=== PATIENT | female | born 1985 | race Caucasian/White ===

== ENCOUNTER 2016-04-27 05:30 | Inpatient (IN) | payer OTHER ==
[2016-04-27] MEDS ORDERED: LR 500 ML IV ONE (05:58)
[2016-04-27] MEDS ORDERED: CITRIC ACID/SODIUM CITRATE 30 ML UDCUP PO ONE (05:58)
[2016-04-27] MEDS ORDERED: LR 1,000 ML IV SCH (06:00)
[2016-04-27 06:33] LABS: % IMMATURE GRANULYOCYTES 0.4 % (0.0-1.1); ABSOLUTE IMMATURE GRANULOCYTES 0.04 10^3/uL (0.00-0.10); ADD DIFF? NO; ADD MORPH? NO; ADD SCAN? NO; ATYPICAL LYMPHOCYTE FLAG 0 (0-99); FRAGMENT RBC FLAG 0 (0-99); HEMATOCRIT 39.7 % (38.0-47.0); HEMOGLOBIN 13.9 g/dL (12.6-16.3); LEFT SHIFT FLG 0 (0-99); LIPEMIA HEMOLYSIS FLAG 90 (0-99); MEAN CELL HEMOGLOBIN 30.4 pg (27.9-34.1); MEAN CELL VOLUME 86.9 fL (81.5-99.8); MEAN PLATELET VOLUME 11.1 fL (8.7-11.7); PLATELET CLUMPS FLAG 0 (0-99); PLATELET COUNT 255 10^3/uL (150-400); RED BLOOD CELL COUNT 4.57 10^6/uL (4.18-5.33); RED CELL DISTRIBUTION WIDTH 13.2 % (11.5-15.2)
[2016-04-27] MEDS ORDERED: TERBUTALINE SULFATE 1 MG/ML VIAL ONE (06:40)
[2016-04-27] MEDS ORDERED: AMMONIA AROMATIC 1 EACH AMP IH ONE (06:40)
[2016-04-27] MEDS ORDERED: MISOPROSTOL 200 MCG TAB ONE (06:40)
[2016-04-27] MEDS ORDERED: OXYTOCIN 10 UNIT/ML VIAL ONE (06:42)
[2016-04-27] MEDS ORDERED: LIDOCAINE 1% 30 ML SDV ONE (06:42)
[2016-04-27] MEDS ORDERED: ceFAZolin 2 GM/DEXTROSE 100 ML IV ONE (07:00)
[2016-04-27] MEDS ORDERED: SIMETHICONE 80 MG TAB CHEW PO PRN (07:32)
[2016-04-27] MEDS ORDERED: PROMETHAZINE HCL 25 MG/ML VIAL IVP PRN (07:32)
[2016-04-27] MEDS ORDERED: BUPIVACAINE/DEXTROSE 7.5MG SPINAL AMP SP ONE (07:33)
[2016-04-27] MEDS ORDERED: morphINE PF 5 MG/10 ML INJ ONE (07:34)
[2016-04-27] MEDS ORDERED: PHENYLEPHRINE HCL 100 MCG/ML SYR ONE (07:48)
[2016-04-27] MEDS ORDERED: epHEDrine SULFATE 10 MG/ML SYR ONE (08:02)
[2016-04-27] MEDS ORDERED: METHYLERGONOVINE MAL 0.2 MG/ML INJ ONE (08:12)
--- NOTE | 2016-04-27 09:27 | GOP ---
[f rep st] OPERATIVE REPORT DATE OF OPERATION: 04/27/2016 SURGEON: Tasha Whatley MD PHARMACIST INTERN: Quin San MD. ANESTHESIA: Spinal. PREOPERATIVE DIAGNOSIS: Intrauterine at 39 weeks' gestation with macrosomia. POSTOPERATIVE DIAGNOSIS: Intrauterine at 39 weeks' gestation with macrosomia. PROCEDURE PERFORMED: Primary low transverse section. FINDINGS: Normal uterus, fallopian tubes, and ovaries. Viable male infant, Apgars 9 and 9, weight 8 pounds 9 ounces. EBL 1000 mL. SPECIMENS: None. ESTIMATED BLOOD LOSS: 1000 mL. INDICATIONS: The patient is a 30-year-old G1, P0, female who had an ultrasound that projected growth to be estimated weight 10 pounds at her due date, and she desired a delivery. The risks of bleeding, infection, blood transfusion, damage to nearby organs were discussed, and the patient understood these risks and desired a . DESCRIPTION OF PROCEDURE: The patient was taken the operating room, where she was prepped and draped in the normal sterile fashion in the dorsal supine position. A surgical time-out was performed, verifying the patient's name, date of , planned procedure, and site. The patient received 2 g of Ancef preoperatively. A Pfannenstiel skin incision was made with a scalpel, and carried through to the underlying fascia. The fascia was incised in the midline and extended laterally. The superior aspect of the fascia was grasped with Son clamps, and rectus muscles dissected off bluntly. The inferior aspect of the fascia was grasped with Son clamps, the rectus muscles dissected off bluntly. The peritoneum was identified and entered in. The bladder blade was placed. The vesicouterine peritoneum was incised, and the bladder flap was created. The bladder blade was replaced. The uterus was incised. The uterine incision was extended. The was delivered. Copious clear amniotic fluid was noted. The cord was clamped and cut. The infant was handed to the nurse practitioner. The placenta was delivered spontaneously. The uterus was exteriorized and cleared of all clots and debris. The uterine incision was reapproximated with 0 Monocryl in a running, locked fashion in 2 layers. The gutters were cleared of all clots and debris. The uterus was returned to the abdomen. The uterine incision was reinspected and noted to be hemostatic. The subfascial spaces were inspected and noted to be hemostatic. The fascia was reapproximated with 0 Vicryl. The subcutaneous tissue was irrigated and closed with 3-0 Vicryl, and the skin was closed with 4-0 Monocryl. All counts were correct x2. COMPLICATIONS: None. OUTCOME: To the recovery. /[id number]/MODL MTDD
[2016-04-27] MEDS ORDERED: KETOROLAC 30 MG/1 ML SDV ONE (09:43)
[2016-04-27] MEDS: KETOROLAC 30 MG/1 ML SDV IVP SCH ×3 (10:05→21:42)
[2016-04-27 19:06] LABS: % IMMATURE GRANULYOCYTES 0.3 % (0.0-1.1); ABSOLUTE IMMATURE GRANULOCYTES 0.04 10^3/uL (0.00-0.10); ADD DIFF? NO; ADD MORPH? NO; ADD SCAN? NO; ATYPICAL LYMPHOCYTE FLAG 0 (0-99); FRAGMENT RBC FLAG 0 (0-99); HEMATOCRIT 36.3 % (38.0-47.0); HEMOGLOBIN 12.8 g/dL (12.6-16.3); LEFT SHIFT FLG 0 (0-99); LIPEMIA HEMOLYSIS FLAG 90 (0-99); MEAN CELL HEMOGLOBIN 31.1 pg (27.9-34.1); MEAN CELL HEMOGLOBIN CONCENTR. 35.3 g/dL (32.4-36.7); MEAN CELL VOLUME 88.1 fL (81.5-99.8); MEAN PLATELET VOLUME 11.1 fL (8.7-11.7); PLATELET CLUMPS FLAG 0 (0-99); PLATELET COUNT 219 10^3/uL (150-400); RED BLOOD CELL COUNT 4.12 10^6/uL (4.18-5.33); RED CELL DISTRIBUTION WIDTH 13.2 % (11.5-15.2)
--- NOTE | 2016-04-27 19:15 | SOAPPROG ---
SOAP Progress Note Assessment/Plan: Assessment: POD#0 s/p pLTCS for macrosomia UOP has been just 30 cc/hr since delivery. Vitals stable. Patient is otherwise doing well, minimal bleeding. repeat CBC appropriate Plan: Continue to monitor UOP closely, expect will improve overnight, no evidence of anemia. Consider BMP in AM if output decreases below 30 ml/hr and/or bolus. Repeat CBC in AM 04/27/16 19:12 04/27/16 19:14 04/27/16 19:14 Objective: Vital Signs Temp Pulse Resp BP Pulse Ox 37.1 C 84 16 118/68 94 04/27/16 14:59 04/27/16 14:59 04/27/16 14:59 04/27/16 14:59 04/27/16 14:59 Laboratory Results 04/27/16 18:55 04/26/16 04/27/16 04/28/16 05:59 05:59 05:59 Intake Total 4400 Output Total 1200 Balance 3200 ICD10 Worksheet Patient Problems: Problems Problem Status Diagnosed macrosomia during in third trimester Acute
[2016-04-28] MEDS ORDERED: diphenhydrAMINE 25 MG CAP PO PRN (00:01)
[2016-04-28] MEDS: KETOROLAC 30 MG/1 ML SDV IVP SCH (04:03)
[2016-04-28] MEDS: HYDROCODONE/APAP 5/325 TAB PO PRN ×4 (08:12→20:31)
--- NOTE | 2016-04-28 08:46 | SOAPPROG ---
SOAP Progress Note Assessment/Plan: Assessment: 30 y.o. female / post-op day #1. Recovering well with good pain control. Incision CDI. . Plan: Routine care. Discontinue euceda, abdominal bandage and hep lock IV. Encourage ambulation. 04/28/16 08:44 Subjective: Reports feeling well with good pain control and small vaginal bleeding. and pumping with assistance. Incision CDI. Appropriate mood with good support system. Eating and drinking well without nausea or vomiting. Objective: Vital Signs Temp Pulse Resp BP Pulse Ox 36.7 C 79 20 101/54 L 2 L 04/28/16 00:35 04/28/16 01:47 04/28/16 00:35 04/28/16 00:35 04/28/16 01:47 Laboratory Results 04/28/16 04:00 04/27/16 04/28/16 04/29/16 05:59 05:59 05:59 Intake Total 5600 Output Total 1960 Balance 3640 - Time Spent With Patient Time Spent With Patient: 20 minutes - Pending Discharge Pending Discharge Within 24 Hours: No Pending Discharge Within 48 Hours: Yes Pending Discharge Date: 04/30/16 Pending Discharge Time: 11:00 Physical Exam - Physical Exam General Appearance: WD/WN, alert, no apparent distress EENT: normal ENT inspection Neck: non-tender, full range of motion, supple, normal inspection Respiratory: chest non-tender, lungs clear, normal breath sounds Cardiac/Chest: regular rate, rhythm Abdomen: normal bowel sounds, non-tender, soft Pelvic Exam: normal external exam Rectal: deferred Back: Normal inspection Skin: normal color, warm/dry Lymphatic: no adenopathy Extremities: normal range of motion, non-tender Neuro/Psych: no motor/sensory deficits, alert, normal mood/affect, oriented x 3 ICD10 Worksheet Patient Problems: Problems Problem Status Diagnosed macrosomia during in third trimester Acute
[2016-04-28] MEDS ORDERED: MAGNESIUM HYDROXIDE 30 ML UDCUP PO PRN (08:47)
[2016-04-28] MEDS ORDERED: LACTULOSE 20 GM/30 ML UDCUP PO PRN (08:47)
[2016-04-28] MEDS ORDERED: BISACODYL 10 MG SUPP PR PRN (08:47)
[2016-04-28] MEDS ORDERED: POLYETHYLENE GLYCOL 3350 17 GM PKT PO PRN (08:47)
[2016-04-28] MEDS: IBUPROFEN 600 MG TAB PO PRN ×3 (09:49→23:45)
[2016-04-28] MEDS: SENNOSIDES/DOCUSATE SODIUM TAB PO SCH ×2 (09:50→20:31)
[2016-04-29] MEDS: HYDROCODONE/APAP 5/325 TAB PO PRN ×6 (00:46→22:13)
[2016-04-29] MEDS: IBUPROFEN 600 MG TAB PO PRN ×4 (05:55→23:54)
--- NOTE | 2016-04-29 08:49 | SOAPPROG ---
SOAP Progress Note Assessment/Plan: Assessment: POD#2 s/p pLTCS for macrosomia doing well postoperatively, routine care. Continue to manage pain control with norco and motrin today Continue work on O+, rub immune, s/p tdap and flu vax Plan: home later today or tomorrow, parents will decide Encouraged to continue with pain medications and not try to wean for a few more days, she agrees with plan 04/27/16 19:12 04/27/16 19:14 04/27/16 19:14 04/29/16 08:46 Subjective: Passing gas. ambulating. Tried to go down on pain meds but then was in a lot of pain when trying to move. going well. Bleeding minimal. Plans to shower today. Tolerating regular diet, voiding spontaneously Objective: Vital Signs Temp Pulse Resp BP Pulse Ox 36.6 C 94 18 127/81 H 95 04/28/16 20:00 04/28/16 20:00 04/28/16 20:00 04/28/16 20:00 04/28/16 20:00 Laboratory Results 04/28/16 04:00 04/28/16 04/29/16 04/30/16 05:59 05:59 05:59 Intake Total 5600 Output Total 1960 1500 Balance 3640 -1500 Gen: NAD, alert, awake Breasts: soft Abd: appropriately distended, soft, appropriately tender Incision: steri strips c/d/i Ext: no edema ICD10 Worksheet Patient Problems: Problems Problem Status Diagnosed macrosomia during in third trimester Acute
[2016-04-29] MEDS: SENNOSIDES/DOCUSATE SODIUM TAB PO SCH ×2 (09:15→22:13)
[2016-04-30] MEDS: HYDROCODONE/APAP 5/325 TAB PO PRN ×3 (04:13→12:21)
[2016-04-30] MEDS: IBUPROFEN 600 MG TAB PO PRN ×2 (06:37→12:21)
[2016-04-30] MEDS: SENNOSIDES/DOCUSATE SODIUM TAB PO SCH (08:14)
--- NOTE | 2016-04-30 08:30 | OBGCSDC ---
General Delivery Information - General Info : 1 Para: 1 Delivery Date: 04/27/16 Delivery Time: 08:11 Delivery Physician/CNM: Tasha Herron Family Law Specialist: Quin San Admission Date: 04/27/16 Labs: Patient ABO/Rh O POSITIVE 04/27/16 05:52 Hct 34.1 % (38.0-47.0) L 04/28/16 04:00 - [place] Info Infant A Sex of : Male Score (1 Min): 8 Score (5 Min): 9 - Delivery IUP (Weeks): 39 weeks Number of Prior Sections: 0 Indications for Current Section: Other (Specify) Procedures: LTCS Intra-op Complications: None EBL: 800 Anesthesia: Spinal Discharge Information - Discharge Information Discharge Medications: Ibuprofen, Vitamins, Vicodin Complications: mildly elevated BPs Condition: Good Instruction/Follow Up: Two Weeks Discharge Physician/CNM: Gemini Santiago Discharge Date: 04/30/16 Dictated: No
[2016-04-30 10:41] LABS: % IMMATURE GRANULYOCYTES 0.3 % (0.0-1.1); ABSOLUTE IMMATURE GRANULOCYTES 0.02 10^3/uL (0.00-0.10); ADD DIFF? NO; ADD MORPH? NO; ADD SCAN? NO; ATYPICAL LYMPHOCYTE FLAG 0 (0-99); FRAGMENT RBC FLAG 0 (0-99); HEMATOCRIT 36.3 % (38.0-47.0); HEMOGLOBIN 12.4 g/dL (12.6-16.3); LEFT SHIFT FLG 0 (0-99); LIPEMIA HEMOLYSIS FLAG 90 (0-99); MEAN CELL HEMOGLOBIN 30.2 pg (27.9-34.1); MEAN CELL HEMOGLOBIN CONCENTR. 34.2 g/dL (32.4-36.7); MEAN CELL VOLUME 88.3 fL (81.5-99.8); MEAN PLATELET VOLUME 10.3 fL (8.7-11.7); PLATELET CLUMPS FLAG 0 (0-99); PLATELET COUNT 259 10^3/uL (150-400); RED BLOOD CELL COUNT 4.11 10^6/uL (4.18-5.33); RED CELL DISTRIBUTION WIDTH 13.2 % (11.5-15.2)
[2016-04-30 11:07] LABS: ALANINE AMINOTRANSFERASE 26 IU/L (9-52); ASPARTATE AMINOTRANSFERASE 25 IU/L (14-46); BILIRUBIN,TOTAL 0.5 mg/dL (0.1-1.4); BILIRUBIN-CONJUGATED 0.1 mg/dL (0.0-0.5); BILIRUBIN-UNCONJUGATED 0.4 mg/dL (0.0-1.1); CREATININE 0.6 mg/dL (0.6-1.0); GLOMERULAR FILTRATION RATE > 60; LACTATE DEHYDROGENASE 586 IU/L (313-618); URIC ACID 7.9 mg/dL (2.5-6.8)
[2016-04-30 12:02] VITALS: BP 134/72; PULSE 70; RESP 16; TEMP 97.9; O2SAT 95
== END 2016-04-30 15:40 | disposition home or self-care (01) | DRG 766 ==
LOC: FLD 05:30 → FOB 11:34
PROVIDERS: ADMIT Obstetrics & Gynecology; ATTEND Obstetrics & Gynecology
PROC: 10D00Z1 Extraction of Products of Conception, Low, Open Approach (ICD-10-PCS; principal; 2016-04-27)
DX: O36.63X0 Maternal care for excessive fetal growth, third trimester, not applicable or unspecified (principal); Z37.0 Single live birth; Z3A.39 39 weeks gestation of pregnancy
CPT/HCPCS: J0690; J1885; J2210; J2274; J2370; J3105

== ENCOUNTER → 2017-03-03 | Outpatient (CLI) | payer OTHER | LOC: BMCIMAGING 10:44 | PROVIDERS: ATTEND Physician Assistant | DX: S32.020A Wedge compression fracture of second lumbar vertebra, initial encounter for closed fracture (principal) ==

== ENCOUNTER → 2017-12-05 | Outpatient (CLI) | payer OTHER | LOC: FIMAGING 13:01 | PROVIDERS: ATTEND Obstetrics & Gynecology | DX: Z36.89 Encounter for other specified antenatal screening (principal); Z3A.21 21 weeks gestation of pregnancy; O34.219 Maternal care for unspecified type scar from previous cesarean delivery ==

== ENCOUNTER → 2018-03-14 | Outpatient (CLI) | payer OTHER | LOC: FIMAGING 08:53 | PROVIDERS: ATTEND Obstetrics & Gynecology | DX: O36.63X0 Maternal care for excessive fetal growth, third trimester, not applicable or unspecified (principal); O34.219 Maternal care for unspecified type scar from previous cesarean delivery; Z3A.36 36 weeks gestation of pregnancy ==